=== PATIENT | male | born 1990 | race African-American/Black ===

== ENCOUNTER 2016-12-07 19:54 | Emergency (ER) | payer SELFPAY ==
[~2016-12-07] VITALS: Ht 180.3 cm; Wt 79.7 kg
[2016-12-07 20:06] VITALS: BP 127/81; PULSE 110; RESP 16; TEMP 98.9; O2SAT 98
--- NOTE | 2016-12-07 20:38 | PD ---
HPI Chief Complaint: GI Complaint Time Seen by Provider: 20:15 Travel History International Travel<30 days: No Contact w/Intl Traveler<30days: No Traveled to known affect area: No History of Present Illness HPI PATIENT STATES THAT WHILE AT WORK HE DEVELOPED PALPITATIONS, FAST, SOMETIMES SKIPPING, THEN HE STARTED TO DEVELOP "SHAKEYNESS" AND NOTICED THAT HE WAS BREATHING FAST, SO HE TRIED TO GATHER HIMSELF AND SLOW DOWN HIS BREATHING RATE. THEN SHORTLY AFTER HE STARTED TO DEVELOP BURNING SENSATION TO EPIG AREA. NOW ALL THE PALPITATIONS HAS RESOLVED BUT FEELS EPIG BURNING SENSATION, 05/20, DENIES N/V/D/ROBBINS/CP/....NO ALLEVIATING OR AGGRAVATING FACTORS PFSH Past Medical History ?: Not Social History Tobacco Use: No Allergies-Medications (Allergen,Severity, Reaction): Coded Allergies: shellfish derived (Verified Allergy, Severe, Anaphylaxis, 12/07/16) Reported Meds & Prescriptions Reported Meds & Active Scripts Active No Active Prescriptions or Reported Medications Review of Systems Except as stated in HPI: all other systems reviewed are Neg General / Constitutional: No: Fever Eyes: No: Visual changes HENT: No: Headaches Cardiovascular: Positive: Palpitations Respiratory: No: Shortness of Breath Gastrointestinal: No: Abdominal Pain Genitourinary: No: Dysuria Musculoskeletal: No: Pain Skin: No Rash Neurologic: No: Weakness Psychiatric: Positive: Anxiety Endocrine: No: Polydipsia Hematologic/Lymphatic: No: Easy Bruising Physical Exam Narrative GENERAL: SKIN: Warm and dry. HEAD: Atraumatic. Normocephalic. EYES: Pupils equal and round. No scleral icterus. No injection or drainage. ENT: No nasal bleeding or discharge. Mucous membranes pink and moist. NECK: Trachea midline. No JVD. CARDIOVASCULAR: Regular rate and rhythm. RESPIRATORY: No accessory muscle use. Clear to auscultation. Breath sounds equal bilaterally. GASTROINTESTINAL: Abdomen soft, non-tender, nondistended. MUSCULOSKELETAL: Extremities without clubbing, cyanosis, or edema. No obvious deformities. NEUROLOGICAL: Awake and alert. No obvious cranial nerve deficits. Motor grossly within normal limits. Five out of 5 muscle strength in the arms and legs. Normal speech. PSYCHIATRIC: Appropriate mood and affect; insight and judgment normal. Data Data Last Documented VS Vital Signs Date Time Temp Pulse Resp B/P (MAP) Pulse Ox O2 Delivery O2 Flow Rate FiO2 12/07/16 23:54 88 16 132/74 (93) 100 12/07/16 23:00 Room Air 12/07/16 20:06 98.9 Orders Orders Electrocardiogram (12/07/16 20:26) Complete Blood Count With Diff (12/07/16 20:26) Comprehensive Metabolic Panel (12/07/16 20:26) Troponin I (12/07/16 20:26) Lipase (12/07/16 20:26) Thyroid Stimulating Hormone (12/07/16 20:26) Drug Screen, Random Urine (12/07/16 20:26) Labs Laboratory Tests Test 12/07/16 20:30 12/07/16 21:20 White Blood Count 10.1 TH/MM3 Red Blood Count 5.20 MIL/MM3 Hemoglobin 14.0 GM/DL Hematocrit 43.7 % Mean Corpuscular Volume 84.1 FL Mean Corpuscular Hemoglobin 26.9 PG Mean Corpuscular Hemoglobin Concent 32.0 % Red Cell Distribution Width 12.0 % Platelet Count 194 TH/MM3 Mean Platelet Volume 8.5 FL Neutrophils (%) (Auto) 69.0 % Lymphocytes (%) (Auto) 17.9 % Monocytes (%) (Auto) 9.5 % Eosinophils (%) (Auto) 1.9 % Basophils (%) (Auto) 1.7 % Neutrophils # (Auto) 6.9 TH/MM3 Lymphocytes # (Auto) 1.8 TH/MM3 Monocytes # (Auto) 1.0 TH/MM3 Eosinophils # (Auto) 0.2 TH/MM3 Basophils # (Auto) 0.2 TH/MM3 CBC Comment DIFF FINAL Differential Comment Blood Urea Nitrogen 9 MG/DL Creatinine 0.94 MG/DL Random Glucose 99 MG/DL Total Protein 7.8 GM/DL Albumin 4.2 GM/DL Calcium Level 8.7 MG/DL Alkaline Phosphatase 51 U/L Aspartate Amino Transf (AST/SGOT) 8 U/L Alanine Aminotransferase (ALT/SGPT) 19 U/L Total Bilirubin 0.8 MG/DL Sodium Level 138 MEQ/L Potassium Level 3.1 MEQ/L Chloride Level 102 MEQ/L Carbon Dioxide Level 25.6 MEQ/L Anion Gap 10 MEQ/L Estimat Glomerular Filtration Rate 96 ML/MIN Troponin I LESS THAN 0.02 NG/ML Lipase 87 U/L Thyroid Stimulating Hormone 3rd Gen 1.280 uIU/ML Urine Opiates Screen NEG Urine Barbiturates Screen NEG Urine Amphetamines Screen NEG Urine Benzodiazepines Screen NEG Urine Cocaine Screen NEG Urine Cannabinoids Screen NEG MDM Medical Decision Making Medical Screen Exam Complete: Yes Emergency Medical Condition: Yes Medical Record Reviewed: Yes Interpretation(s) SINUS TACH 107, LVH (OR MORE LIKELY THIN BODY HABITUS), NO STEMI PATTERN Differential Diagnosis ANXIETY V THYROID-HYPER V ANEMIA V DEHYDRATION Narrative Course AFTER PATIENT WAS EVALUATED NO E/O ANEMIA, DEHYDRATION AND NL THYROID FUNCTION. NEG TOX SCREEN, NL EKG. PALPITATION MAY BE MORE LIKELY DUE TO STRESS REACTION Diagnosis Primary Impression: Palpitations [facility]errals: [facility] Instructions: General Instructions, Heart Palpitations (ED) Scripts No Active Prescriptions or Reported Meds Disposition: DISCHARGE HOME Condition: Stable Enrique Gilbert MD Dec 07, 2016 20:38
[2016-12-07 20:41] LABS: AUTOMATED NEUTROPHIL # 6.9 TH/MM3 (1.8-7.7); BASOPHIL # 0.2 TH/MM3 (0-0.2); BASOPHIL % 1.7 % (0.0-2.0); EOSINOPHIL # 0.2 TH/MM3 (0-0.4); EOSINOPHIL % 1.9 % (0.0-4.0); HEMATOCRIT 43.7 % (39.0-51.0); HEMO FLAGS DIFF FINAL; LYMPH % 17.9 % (9.0-44.0); LYMPHOCYTE # 1.8 TH/MM3 (1.0-4.8); MEAN CELL VOLUME 84.1 FL (80.0-100.0); MEAN CORPUSCULAR HEMOGLOBIN 26.9 PG (27.0-34.0); MONO % 9.5 % (0.0-8.0); PLATELET COUNT 194 TH/MM3 (150-450); WHITE BLOOD COUNT 10.1 TH/MM3 (4.0-11.0)
[2016-12-07 20:48] LABS: CHLORIDE 102 MEQ/L (98-107); POTASSIUM 3.1 MEQ/L (3.5-5.1); SODIUM (NA) 138 MEQ/L (136-145)
[2016-12-07 20:52] LABS: ANION GAP 10 MEQ/L (5-15); BICARBONATE 25.6 MEQ/L (21.0-32.0); BLOOD UREA NITROGEN 9 MG/DL (7-18)
[2016-12-07 20:55] LABS: ALT (GPT) 19 U/L (12-78); AST (GOT) 8 U/L (15-37); GLOMERULAR FILTRATION RATE 96 ML/MIN (>89)
[2016-12-07 20:56] LABS: TOTAL BILIRUBIN ADULT 0.8 MG/DL (0.2-1.0)
[2016-12-07 20:58] LABS: ALKALINE PHOSPHATASE 51 U/L (45-117)
[2016-12-07 23:00] VITALS: BP 127/74; PULSE 85; RESP 16; O2SAT 100
[2016-12-07 23:54] VITALS: BP 132/74
--- NOTE | 2016-12-08 20:46 | EKG ---
Date Performed: 12/07/2016 Time Performed: 20:34:08 PTAGE: 26 years EKG: SINUS TACHYCARDIA ST ELEVATION CONSISTENT WITH INJURY, PERICARDITIS, OR EARLY REPOLARIZATIO N NONSPECIFIC ST & T-WAVE ABNORMALITY ABNORMAL ECG NO PREVIOUS TRACING DOCTOR: Cara Alfonso Interpretating Date/Time 12/08/2016 20:41:39
== END 2016-12-07 23:59 | disposition home or self-care (01) ==
LOC: PHED 19:54
DX: R00.2 Palpitations (principal); R10.13 Epigastric pain; R94.31 Abnormal electrocardiogram [ECG] [EKG]
CPT/HCPCS: 80053; 80307; 83690; 84443; 84484; 85025; 93005; 99284

== ENCOUNTER 2017-03-14 13:25 | Emergency (ER) | payer SELFPAY ==
[2017-03-14 13:28] VITALS: BP 143/61; PULSE 97; RESP 18; RESP 8; TEMP 99; O2SAT 99
[2017-03-14 14:01] LABS: AUTOMATED NEUTROPHIL # 3.5 TH/MM3 (1.8-7.7); BASOPHIL % 0.3 % (0.0-2.0); EOSINOPHIL % 0.7 % (0.0-4.0); HEMATOCRIT 41.8 % (39.0-51.0); HEMOGLOBIN 13.5 GM/DL (13.0-17.0); LYMPH % 27.7 % (9.0-44.0); LYMPHOCYTE # 1.6 TH/MM3 (1.0-4.8); MEAN CELL VOLUME 85.4 FL (80.0-100.0); MEAN CORPUSCULAR HEMOGLOBIN 27.5 PG (27.0-34.0); MEAN CORPUSCULAR HGB CONC 32.3 % (32.0-36.0); MEAN PLATELET VOLUME 8.6 FL (7.0-11.0); MONO % 12.2 % (0.0-8.0); MONOCYTE # 0.7 TH/MM3 (0-0.9); NEUT % 59.1 % (16.0-70.0); PLATELET COUNT 217 TH/MM3 (150-450); RED CELL DISTRIBUTION WIDTH 12.6 % (11.6-17.2); WHITE BLOOD COUNT 5.9 TH/MM3 (4.0-11.0)
[2017-03-14 14:27] LABS: ALBUMIN 4.2 GM/DL (3.4-5.0); ALT (GPT) 17 U/L (12-78); AST (GOT) 13 U/L (15-37); BICARBONATE 26.5 MEQ/L (21.0-32.0); BLOOD UREA NITROGEN 9 MG/DL (7-18); CALCIUM 8.7 MG/DL (8.5-10.1); CHLORIDE 107 MEQ/L (98-107); CREATININE 0.93 MG/DL (0.60-1.30); GLOMERULAR FILTRATION RATE 118 ML/MIN (>89); GLUCOSE,RANDOM 98 MG/DL (74-106); SODIUM (NA) 141 MEQ/L (136-145)
[2017-03-14 14:29] LABS: ALKALINE PHOSPHATASE 55 U/L (45-117); TOTAL BILIRUBIN ADULT 0.7 MG/DL (0.2-1.0); TOTAL PROTEIN 7.6 GM/DL (6.4-8.2)
[2017-03-14 15:19] LABS: BILIRUBIN, URINE NEG (NEG); BLOOD, URINE NEG (NEG); GLUCOSE,URINE NEG (NEG); KETONE, URINE NEG (NEG); MUCUS URINE FEW /lpf (OCC); NITRITE,URINE NEG (NEG); URINE COLOR LIGHT-YELLOW (YELLW/STRAW); URINE LEUKOCYTE ESTERASE NEG (NEG)
[2017-03-14] MEDS ORDERED: RANI150T PO (15:31)
--- NOTE | 2017-03-14 15:31 | PD ---
HPI Chief Complaint: Abdominal Pain Time Seen by Provider: 15:20 Travel History International Travel<30 days: No Contact w/Intl Traveler<30days: No Traveled to known affect area: No History of Present Illness HPI This is a 26 year old male who presents to the emergency department with epigastric pain has been going on for 1 week, constant, moderate severity, sharp feeling like there is fluid filling up in his chest he can get it out when he belches. He felt a little bit nauseous and he has had some loose stools. He denies any fevers or vomiting. He says for 1 year he has been having intermittent left-sided chest pain. He does not smoke cigarettes. [facility] Social History Alcohol Use: No Tobacco Use: No Substance Use: No Allergies-Medications (Allergen,Severity, Reaction): Coded Allergies: shellfish derived (Verified Allergy, Severe, Anaphylaxis, 03/14/17) Reported Meds & Prescriptions Reported Meds & Active Scripts Active No Active Prescriptions or Reported Medications Review of Systems Except as stated in HPI: all other systems reviewed are Neg Physical Exam Narrative GENERAL:Well appearing, no acute distress SKIN: Focused skin assessment warm and dry. HEAD: Atraumatic. Normocephalic. EYES: Pupils equal and round. No injection or drainage. ENT: Moist mucous membranes NECK: Trachea midline. CARDIOVASCULAR: Regular rate and rhythm. No murmur appreciated. RESPIRATORY: Clear to auscultation. Breath sounds equal bilaterally. GASTROINTESTINAL: Abdomen soft, and in the epigastrium with no rebound or guarding. MUSCULOSKELETAL: No obvious deformities. NEUROLOGICAL: Awake and alert. No obvious cranial nerve deficits. Moving all extremities. PSYCHIATRIC: Appropriate mood and affect; insight and judgment normal. Data Data Last Documented VS Vital Signs Date Time Temp Pulse Resp B/P (MAP) Pulse Ox O2 Delivery O2 Flow Rate FiO2 03/14/17 13:28 99.0 97 18 143/61 (88) 99 Room Air Orders Orders Complete Blood Count With Diff (03/14/17 13:41) Comprehensive Metabolic Panel (03/14/17 13:41) Urinalysis - C+S If Indicated (03/14/17 13:41) Labs Laboratory Tests Test 03/14/17 13:45 03/14/17 14:20 White Blood Count 5.9 TH/MM3 Red Blood Count 4.90 MIL/MM3 Hemoglobin 13.5 GM/DL Hematocrit 41.8 % Mean Corpuscular Volume 85.4 FL Mean Corpuscular Hemoglobin 27.5 PG Mean Corpuscular Hemoglobin Concent 32.3 % Red Cell Distribution Width 12.6 % Platelet Count 217 TH/MM3 Mean Platelet Volume 8.6 FL Neutrophils (%) (Auto) 59.1 % Lymphocytes (%) (Auto) 27.7 % Monocytes (%) (Auto) 12.2 % Eosinophils (%) (Auto) 0.7 % Basophils (%) (Auto) 0.3 % Neutrophils # (Auto) 3.5 TH/MM3 Lymphocytes # (Auto) 1.6 TH/MM3 Monocytes # (Auto) 0.7 TH/MM3 Eosinophils # (Auto) 0.0 TH/MM3 Basophils # (Auto) 0.0 TH/MM3 CBC Comment DIFF FINAL Differential Comment Blood Urea Nitrogen 9 MG/DL Creatinine 0.93 MG/DL Random Glucose 98 MG/DL Total Protein 7.6 GM/DL Albumin 4.2 GM/DL Calcium Level 8.7 MG/DL Alkaline Phosphatase 55 U/L Aspartate Amino Transf (AST/SGOT) 13 U/L Alanine Aminotransferase (ALT/SGPT) 17 U/L Total Bilirubin 0.7 MG/DL Sodium Level 141 MEQ/L Potassium Level 4.1 MEQ/L Chloride Level 107 MEQ/L Carbon Dioxide Level 26.5 MEQ/L Anion Gap 8 MEQ/L Estimat Glomerular Filtration Rate 118 ML/MIN Urine Color LIGHT-YELLOW Urine Turbidity CLEAR Urine pH 8.0 Urine Specific [place] 1.008 Urine Protein NEG mg/dL Urine Glucose (UA) NEG mg/dL Urine Ketones NEG mg/dL Urine Occult Blood NEG Urine Nitrite NEG Urine Bilirubin NEG Urine Urobilinogen LESS THAN 2.0 MG/DL Urine Leukocyte Esterase NEG Urine RBC 1 /hpf Urine WBC LESS THAN 1 /hpf Urine Mucus FEW /lpf Microscopic Urinalysis Comment CULT NOT INDICATED MDM Medical Decision Making Medical Screen Exam Complete: Yes Emergency Medical Condition: Yes Interpretation(s) Labs are all reassuring Differential Diagnosis GERD, gastritis, peptic ulcer disease, pancreatitis Narrative Course This is a well-appearing 26-year-old male who presents to the emergency department with epigastric discomfort feeling like he is regurgitating up into his chest. He has a benign abdomen. Labs are all reassuring. I suspect the patient has GERD. Patient will be discharged on Zantac and given a GI cocktail. He was given a referral to [facility] for follow[facility]up. Diagnosis Primary Impression: GERD (gastroesophageal reflux disease) Qualified Codes: K21.9 - Gastro-esophageal reflux disease without esophagitis Patient Instructions: General Instructions Additional Instructions: If you develop severe or worsening abdominal pain, fever>100.4, persistent vomiting or inability to eat or drink return to the emergency department immediately. Follow up with your primary care physician in 1-2 days for a check-up. Med/Other Pt SpecificInfo: Prescription(s) given Scripts Ranitidine (Ranitidine) 150 Mg Tab 150 MG PO BID for Heartburn Management, #60 TAB 0 Refills Prov: Morena Garcia MD 03/14/17 Disposition: 01 DISCHARGE HOME Condition: Stable Morena Garcia MD Mar 14, 2017 15:31
[2017-03-14] MEDS ORDERED: ATROPINE/SCOPOLAM/HYOSCYAM/PB ELIXIR 10 ML CUP PO ONE (15:45)
[2017-03-14] MEDS ORDERED: LIDOCAINE VISCOUS 2% SOLN 15 ML UDC SWISH-SWAL ONE (15:45)
[2017-03-14] MEDS ORDERED: ALUMINUM/MAGNESIUM/SIMETH 30 ML CUP PO ONE (15:45)
== END 2017-03-14 15:50 | disposition home or self-care (01) ==
LOC: NEPD 13:25
DX: K21.9 Gastro-esophageal reflux disease without esophagitis (principal)
CPT/HCPCS: 80053; 81001; 85025; 99283